=== PATIENT | female | born 1975 | race Caucasian/White ===

== ENCOUNTER 2018-10-11 22:05 | Emergency (ER) | payer OTHER ==
[2018-10-11 22:56] VITALS: BMI 34.7
[2018-10-11] MEDS ORDERED: SODIUM CHLORIDE 1,000 ML IV STA (23:37)
--- NOTE | 2018-10-12 00:16 | PDOC ---
History of Present Illness - General Chief Complaint: Vaginal Bleeding Stated Complaint: VAGINAL BLEEDING Time Seen by Provider: 10/11/18 22:20 History Source: Patient Exam Limitations: No Limitations - History of Present Illness Initial Comments: 43 y/o F , currently (uncertain how long), LNMP around 06/04/18 ( not certain of exact date), found out at home that she was around end of August but has been unable to f/u with a FOOD SERVICE DRIVER doctor due to insurance issues. Presents due to having vaginal bleeding from 10/08. States initially it was very light (only went through 1 pad/day). Yesterday, the bleeding got a bit heavier so patient went to [facility] yesterday, had an ultrasound done which showed gestational sac at 7 weeks (no yolk sac seen). Patient was discharged to f/u with CARDIOVASCULAR DISEASE SPECIALIST in 2 days. Returns today as states the bleeding has gotten much worse and now she is passing clots. Denies fever, sob, cp, abd pain , n/v/d, urinary complaints, dizziness, weakness, fatigue. 10/12/18 00:09 Past History - Past Medical History Allergies/Adverse Reactions: Allergies Allergy/AdvReac Type Severity Reaction Status Date / Time No Known Allergies Allergy Verified 10/11/18 23:36 Home Medications: Ambulatory Orders Multivitamins [Tab-A-Vit -] 1 tab PO DAILY 10/11/18 COPD: No - Reproductive History Is Patient Now?: Yes (#): 6 - Suicide/Smoking/Psychosocial Hx Smoking History: Never smoked Have you smoked in the past 12 months: No Hx Alcohol Use: No Drug/Substance Use Hx: No Substance Use Type: None Review of Systems - Review of Systems Comments:: see hpi 10/12/18 00:16 *Physical Exam - Vital Signs Last Vital Signs Temp Pulse Resp BP Pulse Ox 98.9 F 114 H 16 137/85 98 10/11/18 22:40 10/11/18 22:40 10/11/18 22:40 10/11/18 22:40 10/11/18 22:40 - Physical Exam General Appearance: No: Apparent Distress Respiratory/Chest: positive: Lungs Clear, Normal Breath Sounds. negative: Respiratory Distress Cardiovascular: positive: Regular Rhythm, Regular Rate, S1, S2. negative: Murmur Female Pelvic Exam: positive: other (Large blood clot visible outside vagina; on removal, large amount of blood noted in vault, unable to visualize cervix; also difficult to palpate cervix) Gastrointestinal/Abdominal: positive: Normal Bowel Sounds, Soft. negative: Tender, Distended, Guarding, Rebound Neurologic: positive: Fully Oriented, Alert, Normal Mood/Affect Moderate Sedation - Procedure Monitoring Vital Signs: Procedure Monitoring Vital Signs Temperature 98.9 F 10/11/18 22:40 Pulse Rate 114 H 10/11/18 22:40 Respiratory Rate 16 10/11/18 22:40 Blood Pressure 137/85 10/11/18 22:40 O2 Sat by Pulse Oximetry (%) 98 10/11/18 22:40 ED Treatment Course - LABORATORY CBC & Chemistry Diagram: 10/11/18 23:45 10/11/18 23:45 - RADIOLOGY Radiology Studies Ordered: Category Date Time Status TRANSVAGINAL US PREG [US] Stat Ultrasound 10/11/18 23:12 Ordered Medical Decision Making - Medical Decision Making 43 y/o F currently ?7 weeks presents with heavy vaginal bleeding and passage from clots from today. Concern for likely miscarriage ( unsure incomplete vs complete ). Blood clot was sent to lab to check for products of conception. Labs: CBC, BMP, Bhcg, UA, Type and screen Imaging: Transvaginal ultrasound 1 L NS started Will consider FOOD SERVICE DRIVER consult depending on results; possible need for D&C? 10/12/18 00:17 Pelvic ultrasound: No intrauterine gestation is noted. The endometrium is thickened up to 1.7 cm. The cervix is open with fluid in the endocervical canal. If the patient was , then demise is suspected. This thickened endometrium should be followed up to rule out retained products. Ovaries not visualized. No IUP noted Patient states her bleeding has stopped CBC with normal Hgb/Hct Likely complete Patient advised OB follow-up tomorrow 10/12/18 02:05 *DC/Admit/Observation/Transfer Diagnosis at time of Disposition: Complete - Discharge Dispostion Disposition: HOME Decision to Admit order: No - Referrals - Patient Instructions Printed Discharge Instructions: DI for Miscarriage Additional Instructions: Thank you for choosing [facility]. It was a pleasure taking care of you. You were seen here for vaginal bleeding Unfortunately, you were found to have a miscarriage Please be sure to follow-up with your FOOD SERVICE DRIVER doctor tomorrow for further care. Return to the Emergency Department if your symptoms worsen or persist, you have fever, shortness of breath, chest pain, severe abdominal pain, vomiting, heavy vaginal bleeding or other concerning symptoms. - Post Discharge Activity
[2018-10-12 00:17] LABS: BASO % 0.4 % (0-2.0); EOS % 0.9 % (0-4.5); HEMATOCRIT 34.7 % (32.4-45.2); LYMPH % 19.5 % (8-40); MCH 30.3 pg (25.7-33.7); MCHC 34.5 g/dl (32.0-36.0); MEAN CELL VOLUME 87.8 fl (80-96); MEAN PLT VOLUME 9.5 fl (7.5-11.1); NEUT % 75.2 % (42.8-82.8); PLATELET COUNT 223 K/MM3 (134-434); RBC 3.95 M/mm3 (3.60-5.2); RDW 13.8 % (11.6-15.6); WHITE BLOOD COUNT 10.1 K/mm3 (4.0-10.0)
[2018-10-12 01:05] LABS: ANION GAP 8 MMOL/L (8-16); BLOOD UREA NITROGEN 12 mg/dL (7-18); CALCIUM 8.1 mg/dL (8.5-10.1); CHLORIDE 109 mmol/L (98-107); CO2 23 mmol/L (21-32); CREATININE 0.8 mg/dL (0.55-1.3); GLUCOSE,RANDOM 148 mg/dL (74-106); SODIUM 140 mmol/L (136-145)
[2018-10-12 01:17] LABS: URINE APPEARANCE CLOUDY; URINE BILIRUBIN NEGATIVE (<2.0 mg/dL); URINE COLOR AMBER; URINE GLUCOSE (UA) NEGATIVE (NEGATIVE); URINE KETONE NEGATIVE (NEGATIVE); URINE LEUK ESTERASE TRACE (NEGATIVE); URINE NITRITE NEGATIVE (NEGATIVE); URINE PROTEIN 2+ (NEGATIVE); URINE UROBILINOGEN NEGATIVE mg/dL (0.2-1.0)
[2018-10-12 02:16] VITALS: BP 128/74; PULSE 103; TEMP 98.6
--- NOTE | 2018-10-15 17:45 | PATH ---
Surgical Pathology Report Patient Name: DARRELL MOORE [facility]. Rec. #: [id number] /Age/Gender: 1975 (Age: 43) / F Account: [id number] Location: EMERGENCY ROOM Taken: 10/11/2018 Received: 10/12/2018 Reported: 10/15/2018 Physicians: PHYSICIAN EMERGENCY DEPT Specimen(s) Received PRODUCTS OF CONCEPTION Clinical History Heavy vaginal bleeding from 3 days ago Final Diagnosis PRODUCTS OF CONCEPTION, PASSAGE: ISOLATED FOCALLY DEGENERATED IMMATURE VILLOUS TISSUE IN A BACKGROUND OF ABUNDANT BLOOD/FIBRIN CLOTS CONSISTENT WITH PRODUCTS OF CONCEPTION. Electronically Signed Nahed Palacios M.D. Gross Description Received fresh, labeled with the patient's name and indicated on the requisition to be possible products of conception, is a 5.3 x 3.6 x 0.5 cm aggregate of red-brown blood clot. No definite villous tissue or somatic tissue is identified. The specimen is entirely submitted in 4 cassettes. /10/12/2018 saudi10/12/2018
== END 2018-10-12 02:36 | disposition home or self-care (01) ==
LOC: JER 22:05
PROC: 3E0337Z Introduction of Electrolytic and Water Balance Substance into Peripheral Vein, Percutaneous Approach (ICD-10-PCS; principal; 2018-10-11)
DX: O26.899 Other specified pregnancy related conditions, unspecified trimester (principal); O03.9 Complete or unspecified spontaneous abortion without complication; Z3A.00 Weeks of gestation of pregnancy not specified
CPT/HCPCS: 36415; 76817-TC; 80048; 81003; 81015; 84702; 84703; 85025; 86850; 86900; 86901; 88305-TC; 99284-25; J7030